=== PATIENT | female | born 1970 | race American Indian/Alaskan Native ===

== ENCOUNTER 2019-09-07 07:55 | Outpatient (CLI) | payer OTHER ==
--- NOTE | 2019-09-07 08:32 | XRay Report ---
Right shoulder, 3 views INDICATION: Right shoulder pain FINDINGS: Glenohumeral joint space is intact. No fracture or dislocation. No spurring or arthritic ch tj. No calcific tendinitis or bursitis. No abnormality seen. IMPRESSION: Negative shoulder Signer Name: Lane Martin MD Signed: 09/07/2019 8:28 AM Workstation Name: [email or web address]
== END 2019-09-07 07:56 | disposition home or self-care (01) ==
LOC: XRAY 07:55
PROVIDERS: ATTEND Internal Medicine
DX: M25.551 Pain in right hip (principal)